=== PATIENT | female | born 1970 | race Two or more races ===

== ENCOUNTER 2016-12-14 23:17 | Emergency (ER) | payer OTHER ==
[~2016-12-14] VITALS: Ht 162.6 cm; Wt 82.5 kg
[2016-12-15] MEDS ORDERED: ONDANSETRON 2MG/ML, 2ML ONE (00:15)
[2016-12-15] MEDS ORDERED: MORPHINE SULFATE 4 MG/ML, 1ML ONE (00:15)
[2016-12-15] MEDS ORDERED: MORPHINE SULFATE 4 MG/ML, 1ML IVPush PRN (00:30)
[2016-12-15] MEDS ORDERED: SODIUM CHLORIDE FLUSH 10ML SYR IVF ONE (00:30)
[2016-12-15] MEDS ORDERED: ONDANSETRON 2MG/ML, 2ML IVPush ONE (00:30)
[2016-12-15] MEDS ORDERED: SODIUM CHLORIDE 0.9% 1,000ML IVBOLUS ONE ×2 (00:30→02:00)
[2016-12-15 00:55] LABS: ASPARTATE AMINO TRANSFERASE 27 U/L (15-37); BLOOD UREA NITROGEN 9 mg/dL (7-18)
[2016-12-15] MEDS ORDERED: CEFTRIAXONE PMX 1GM/50ML 50 ML ONE (01:52)
[2016-12-15] MEDS ORDERED: METOCLOPRAMIDE 5 MG/ML, 2ML IVPush ONE (02:00)
[2016-12-15] MEDS ORDERED: CEFTRIAXONE PMX 1GM/50ML 50 ML IV ONE (02:00)
[2016-12-15] MEDS ORDERED: KETOROLAC 30 MG/1 ML IVPush ONE (02:00)
[2016-12-15] MEDS ORDERED: METOCLOPRAMIDE 5 MG/ML, 2ML ONE (02:29)
[2016-12-15] MEDS ORDERED: KETOROLAC 30 MG/1 ML ONE (02:29)
[2016-12-15 02:36] VITALS: BP 121/77
== END 2016-12-15 03:10 | disposition home or self-care (01) ==
LOC: ED 12-15 03:04
DX: N10 Acute pyelonephritis (principal); R10.32 Left lower quadrant pain; Z90.49 Acquired absence of other specified parts of digestive tract
CPT/HCPCS: 36415; 74176; 80053; 81001; 83690; 84703; 85025; 87077; 87086; 96361; 96365; 96375; 99285; J0696; J1885; J2405; J2765; J7030; 87186